=== PATIENT | female | born 1945 | race Caucasian/White ===

== ENCOUNTER → 2016-11-21 | Outpatient (CLI) | payer OTHER, MEDICARE ==
[~2016-11-21] MED LIST: ADULT LOW DOSE81 MG PO; AMOXICILLIN 50500 M1; BENICAR HCT 201 EACH PO; GLUCOPHAGE500 MG PO; NORCO 5-325 TA1 EACH PO; NYQUIL D COLD295 ML; ROBITUSSIN15 MG/5 M1; SIMVASTATIN40 MG PO; VALIUM2 MG PO
--- NOTE | ~2016-11-21 | EKG ---
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
== END | disposition home or self-care (01) ==
LOC: LITH 05:07
DX: N20.0 Calculus of kidney (principal)